=== PATIENT | male | born 1985 | race Caucasian/White ===

== ENCOUNTER 2021-08-18 19:39 | Inpatient (IN) | payer OTHER ==
[~2021-08-18] VITALS: Ht 152.4 cm; Wt 58.9 kg
[2021-08-18 21:30] VITALS: BP 128/77
[2021-08-18 22:41] LABS: HEMATOCRIT 48.9 % (42.0-52.0); HEMOGLOBIN 15.7 gm/dL (14.0-18.0); MCH 29.5 pg (26.0-34.0); MCHC 32.2 g/dL (28.0-37.0); MCV 91.6 fL (80.0-100.0); RBC 5.34 mil/uL (4.50-6.00); RDW 14.5 % (10.5-14.5); WBC 17.4 thou/uL (4.0-11.0)
[2021-08-18 22:43] LABS: CALCIUM 9.2 mg/dL (8.5-10.1); CREATININE 0.9 mg/dL (0.7-1.3); POTASSIUM 4.4 mmol/L (3.5-5.1)
[2021-08-19 04:00] VITALS: BP 103/62
--- NOTE | 2021-08-19 06:33 | NUR ---
PT DIRECT ADMIT FROM [facility], REPORTS R REAR EAR PAIN, SWELLING NOTED WARM TO TOUCH, PAIN MEDICATION ADMINISTERED PER SCHEDULE, TIOLARATING ABT THERAPY WELL NO ADVERSE REACTION NOTED WILL CONTINUE TO MONITOR.
[2021-08-19 07:59] VITALS: BP 116/60
--- NOTE | 2021-08-19 10:23 | NUR ---
Assumed care of pt at 0700. Pt a&ox4. ENT doctor consulted. Stated he will see patient in late morning. Abscess behind left ear. Family at bedside. Call light within reach. Will continue to monitor.
[2021-08-19] MEDS ORDERED: HYDROCODON-ACE1 EAC7 PO (14:11)
[2021-08-19] MEDS ORDERED: CLINDAMYCIN HC300 MG PO (14:11)
[2021-08-19 14:34] VITALS: BP 116/60
== END 2021-08-19 14:43 | disposition home or self-care (01) | DRG 872 ==
LOC: 4W 19:39 → 4S 21:41
PROVIDERS: Nurse Practitioner Family; ADMIT Hospitalist; ATTEND Hospitalist
PROC: 09900ZZ Drainage of Right External Ear, Open Approach (ICD-10-PCS; principal; 2021-08-19)
DX: A41.9 Sepsis, unspecified organism (principal); H60.01 Abscess of right external ear; H60.11 Cellulitis of right external ear; Z71.6 Tobacco abuse counseling; Z79.899 Other long term (current) drug therapy
CPT/HCPCS: 10102